=== PATIENT | female | born 1970 ===

== ENCOUNTER 2017-06-22 08:04 | Outpatient (CLI) | payer BC ==
--- NOTE | 2017-06-22 11:11 | Mammography Report ---
BILATERAL DIGITAL SCREENING MAMMOGRAM with CAD: 06/22/17 CLINICAL: Routine screening. COMPARISON:None available. However, she states that she had a prior mammogram in 2015 at another location. FINDINGS: The breasts are heterogeneously dense, which may obscure small masses. Bilateral asymmetries and architectural distortion require comparison with the prior mammogram or additional imaging. No suspicious calcifications. IMPRESSION: Bilateral asymmetries requiring further evaluation. BI-RADS CATEGORY: 0 -- Additional Evaluation Required RECOMMENDATION: Comparison with a previous mammogram. We will attempt to obtain a prior mammogram. If we do not obtain a prior mammogram for comparison within 30 days, a revised report will be issued recommending a recall for additional imaging. Please be advised that the patient should not schedule an appointment for return until adequate time (at least 2 weeks) has passed for us to obtain the prior mammogram. ACR BI-RADS MAMMOGRAPHIC CODES: 0 = Needs additional imaging evaluation; 1 = Negative; 2 = Benign; 3 = Probably benign; 4 = Suspicious; 5 = Malignant; 6 = Known biopsy-proven malignancy COMMENT: 1. Dense breast tissue, i.e., adenosis, fibrocystic changes, etc., may obscure an underlying neoplasm. 2. Approximately 10% of cancers are not detected with mammography. 3. A negative mammography report should not delay biopsy if a clinically suspicious mass is present. COMMENT: Patient follow-up letters are generated via our [employer] application.
--- NOTE | 2017-06-22 14:38 | Ultrasound Report ---
TRANSABDOMINAL AND TRANSVAGINAL PELVIC ULTRASOUND: 06/22/17 08:04:00 CLINICAL: Left adnexal tenderness. FINDINGS: Transabdominal and transvaginal pelvic ultrasound demonstrated an enlarged fibroid uterus measuring 12.3 x 5.2 x 10.1 cm. Too numerous to count uterine fibroids. The largest fibroid is located subserosal to the left of midline in the uterine body and measures 5.0 x 4.8 x 6.6 cm. A subserosal fundal fibroid measures 6.5 x 4.6 x 5.3 cm. An anterior lower uterine segment subserosal fibroid measures 3.4 x 2.3 x 2.2 cm. The endometrium was not demonstrated and a right ovary was not identified. Complex cysts of the left adnexa with relatively thick fleming and low level internal echoes measure 2.0 x 1.8 x 2.0 cm and 2.1 x 1.9 x 1.5 cm. A distinct left ovary is not identified. IMPRESSION: 1. Uterine leiomyomata with uterine enlargement and too numerous to count uterine fibroids. 2. Complex cysts of the left adnexa probably arise within the left ovary. The appearance is suggestive of endometriomata. Other considerations are TOAs, hemorrhagic cysts or dermoid cysts. 3. No right ovary identified.
== END 2017-06-22 08:05 | disposition home or self-care (01) ==
LOC: SPVWC 08:04
PROVIDERS: ATTEND Internal Medicine
DX: Z12.31 Encounter for screening mammogram for malignant neoplasm of breast (principal); D25.2 Subserosal leiomyoma of uterus; N94.89 Other specified conditions associated with female genital organs and menstrual cycle
CPT/HCPCS: 76830; 76856; G0202; 77067